=== PATIENT | male | born 1960 | race Caucasian/White ===

== ENCOUNTER 2020-12-07 06:07 | Day surgery (SDC) | payer OTHER ==
[~2020-12-07] VITALS: Ht 165.1 cm; Wt 108.9 kg
[2020-12-07] MEDS ORDERED: fentaNYL citrate 0.05 MG/ML VIAL ONE (07:28)
[2020-12-07] MEDS ORDERED: diphenhydrAMINE 50 MG/ML VIAL ONE (07:28)
[2020-12-07] MEDS ORDERED: LIDOCAINE 2% 100 MG/5 ML UJET TP ONE (07:28)
[2020-12-07] MEDS ORDERED: MIDAZOLAM 5 MG/5 ML VIAL ONE (07:28)
[2020-12-07] MEDS ORDERED: fentaNYL citrate 0.05 MG/ML VIAL IVP ONE (14:45)
[2020-12-07] MEDS ORDERED: MIDAZOLAM 5 MG/5 ML VIAL IV ONE (15:00)
== END 2020-12-07 09:15 | disposition home or self-care (01) ==
LOC: MDS 06:07 → MMU 06:08 → MDS 09:15
PROVIDERS: ATTEND Internal Medicine Gastroenterology
DX: Z12.11 Encounter for screening for malignant neoplasm of colon (principal); D12.4 Benign neoplasm of descending colon; K57.30 Diverticulosis of large intestine without perforation or abscess without bleeding; Z86.010 Personal history of colon polyps; Z79.01 Long term (current) use of anticoagulants; Z79.899 Other long term (current) drug therapy
CPT/HCPCS: 45385; 88305; J2250; J3010; J1200